=== PATIENT | female | born 1980 | race Caucasian/White ===

== ENCOUNTER 2018-09-02 10:00 | Emergency (ER) | payer MEDICAID ==
[~2018-09-02] VITALS: Ht 175.3 cm; Wt 122.5 kg
[2018-09-02 10:11] VITALS: BP 144/99
[2018-09-02] MEDS ORDERED: Dexamethasone 4mg/ml vial IM ONE (10:15)
[2018-09-02] MEDS ORDERED: IBUPROFEN600 MG ORAL (10:16)
[2018-09-02] MEDS ORDERED: AMOXICILLIN500 MG ORAL (10:16)
[2018-09-02 10:31] VITALS: BP 144/99
--- NOTE | 2018-09-02 12:23 | Emergency Room Report ---
History of Present Illness General Chief Complaint: Sore Throat Source: Patient Present Illness HPI 38-year-old female presents ED complaining of sore throat 2 days. Also complaining of earache. Denies cough. Pain is dull, 9 out of 10, nonradiating. Notes difficulty swallowing. Afebrile in triage. Denies sick contacts or recent travel. No other aggravating relieving factors. Denies any other associated symptoms Allergies: Coded Allergies: No Known Allergies (Unverified , 09/02/18) Patient History Past Medical History: none Past Surgical History: none Pertinent Family History: none Social History: Denies: smoking, alcohol use, drug use Last Menstrual Period: 08/01/18 Now: No Immunizations: UTD Reviewed Nursing Documentation: PMH: Agreed; PSxH: Agreed Nursing Documentation-PMH Past Medical History: No History, Except For Hx Hypertension: No - migraine Review of Systems All Other Systems: negative except mentioned in HPI Physical Exam Vital Signs Date Time Temp Pulse Resp B/P (MAP) Pulse Ox O2 Delivery O2 Flow Rate FiO2 09/02/18 10:03 98.4 102 18 144/99 97 Room Air 98.4 Sp02 EP Interpretation: reviewed, normal General Appearance: no apparent distress, alert, GCS 15, non-toxic Head: normocephalic, atraumatic Eyes: bilateral eye normal inspection, bilateral eye PERRL ENT: hearing grossly normal, no angioedema, normal voice, pharyngeal erythema Neck: full range of motion, supple/symm/no masses Respiratory: chest non-tender, lungs clear, normal breath sounds, speaking full sentences Cardiovascular #1: regular rate, rhythm, no edema Cardiovascular #2: 2+ carotid (R), 2+ carotid (L), 2+ radial (R), 2+ radial (L) , 2+ dorsalis pedis (R), 2+ dorsalis pedis (L) Gastrointestinal: normal bowel sounds, non tender, soft, non-distended, no guarding, no rebound Rectal: deferred Genitourinary: normal inspection, no CVA tenderness Musculoskeletal: back normal, gait/station normal, normal range of motion, non- tender Neurologic: alert, oriented x3, responsive, motor strength/tone normal, sensory intact, speech normal Psychiatric: judgement/insight normal, memory normal, mood/affect normal, no suicidal/homicidal ideation Reflexes: 3+ bicep (R), 3+ bicep (L), 3+ tricep (R), 3+ tricep (L), 3+ knee (R) , 3+ knee (L) Skin: normal color, no rash, warm/dry, well hydrated Lymphatic: adenopathy Medical Decision Making Diagnostic Impression: Primary Impression: Pharyngitis Qualified Codes: J02.9 - Acute pharyngitis, unspecified ER Course Hospital Course 38year-old female presents to ED complaining of sore throat Differential diagnoses include: URI, pharyngitis, otitis media Clinical course Patient placed on stretcher. After initial history, physical exam reveals a female in no acute distress. Bilateral TM unremarkable. There is pharyngeal erythema w/o tonsillar exudates. Noted lymphadenopathy. Clinical findings consistent with pharyngitis. Discussed findings with patient. We'll discharge with antibiotics, ibuprofen. Given Decadron shot here. Safe for discharge or close outpatient follow-up Diagnosis - pharyngitis Stable and discharged home with prescriptions for Motrin, amoxicillin. Instructed to followup with PMD. return to ED if symptoms recur or worsen Last Vital Signs Date Time Temp Pulse Resp B/P (MAP) Pulse Ox O2 Delivery O2 Flow Rate FiO2 09/02/18 10:31 98.4 102 18 144/99 97 Room Air 98.4 Status: improved Disposition: HOME, SELF-CARE Condition: Stable Scripts Amoxicillin* (AMOXIL*) 500 Mg Capsule 500 MG ORAL THREE TIMES A DAY, #21 CAP Prov: Marcos Sherman MD 09/02/18 Ibuprofen* (MOTRIN*) 600 Mg Tablet 600 MG ORAL Q8H PRN for For Pain, #30 TAB 0 Refills Prov: Marcos Sherman MD 09/02/18 Referrals: [facility],REFERR[facility] (PCP) Patient Instructions: Pharyngitis, [id number] Marcos Sherman MD Sep 02, 2018 12:23
== END 2018-09-02 10:32 | disposition home or self-care (01) ==
LOC: EMR 10:25
DX: J02.9 Acute pharyngitis, unspecified (principal)
CPT/HCPCS: 96372; 99283; J1100

== ENCOUNTER 2018-12-03 16:15 | Emergency (ER) | payer MEDICAID ==
[~2018-12-03] VITALS: Ht 175.3 cm; Wt 113.4 kg
[~2018-12-03 16:15] MED LIST: AMOXICILLIN500 MG ORAL; IBUPROFEN600 MG ORAL
--- NOTE | 2018-12-03 16:40 | NUR ---
ED Nurse Note: patient came into ED ambulatory steady gait, a/ox 4, with her two children, pt states started having dizziness and migraine last night got worse.
[2018-12-03] MEDS ORDERED: SUMAtriptan 100mg tab ORAL ONE (17:00)
--- NOTE | 2018-12-03 17:04 | Emergency Room Report ---
History of Present Illness General Chief Complaint: Headache Present Illness HPI 38-year-old female patient presents the ER complaining of migraine headache for the past 15 hours. Patient reports that headache began around 3 AM this morning. Reports history of migraines in the past, states that this feels similar, denies worse headache of life. Reports headache is right-sided. Denies vomiting or vision changes. Denies neck stiffness. Denies fever. Denies acute injury or trauma. Reports previously taken Imitrex, states ran out of the medication. Denies other acute aggravating or relieving factors. Reports nausea, denies vomiting. Reports light sensitivity. Allergies: Coded Allergies: DIPHENHYDRAMINE (Verified Allergy, Severe, Rash, 12/03/18) Patient History Past Medical History: see triage record Last Menstrual Period: >1 month Now: No Reviewed Nursing Documentation: PMH: Agreed; PSxH: Agreed Nursing Documentation-PMH Hx Hypertension: No - migraine Review of Systems All Other Systems: negative except mentioned in HPI Physical Exam Vital Signs Date Time Temp Pulse Resp B/P (MAP) Pulse Ox O2 Delivery O2 Flow Rate FiO2 12/03/18 16:33 97.7 99 18 160/93 98 Room Air Sp02 EP Interpretation: reviewed, normal General Appearance: well appearing, no apparent distress, alert, GCS 15, non- toxic Head: normocephalic, atraumatic Eyes: bilateral eye normal inspection, bilateral eye PERRL, bilateral eye EOMI ENT: hearing grossly normal, normal pharynx, no angioedema, normal voice, TMs + canals normal, uvula midline, moist mucus membranes Neck: full range of motion, no meningismus, no bony tend Respiratory: lungs clear, normal breath sounds, no rhonchi, no respiratory distress, no accessory muscle use, no wheezing, speaking full sentences Cardiovascular #1: regular rate, rhythm, no edema Genitourinary: no CVA tenderness Musculoskeletal: back normal, digits/nails normal, gait/station normal, normal range of motion, non-tender Neurologic: alert, oriented x3, responsive, insole reinforcer III-XII nml as tested, motor strength/tone normal, sensory intact, cerebellar normal, normal gait, speech normal, other - negative Kernig, negative Brudzinski Skin: no rash Lymphatic: no adenopathy Medical Decision Making PA Attestation Dr. Newman is my supervising Physician whom patient management has been discussed with. Diagnostic Impression: Primary Impression: Headache ER Course Pt presents to ED c/o headache. DDX considered but are not limited to migraine, cluster RODRIGUES, tension RODRIGUES, meningitis, ICH, meningitis, HTN, influenza, UTI, SAH. Cranial nerves intact, no focal neuro deficits, hx of migraine, current RODRIGUES similar in intensity, denies worse RODRIGUES of life, does not require CT Head at this time. No meningeal signs, no fever, low suspicion for meningitis. VITAL SIGNS are WNL, patient is afebrile ER COURSE Provided patient with Imitrex and Zofran while in the ER. States normally takes imitrex for migraines, states "ran out of medication". UA unremarkable, no signs of infection, urine negative. Discussed results with patient. Patient reports pain improved. Patient is AOx3, neurologically intact, nontoxic appearing, and ambulatory. ER precautions given. followup with neuro DISCHARGE: -Rx provided Sumatriptan At this time pt is stable for d/c to home. Patient is resting comfortably, in no acute distress, nontoxic appearing, talking and smiling. Will provide with patient care instructions and any necessary prescriptions. Patient to take medication as instructed. Care plan and follow-up instructions provided. Patient questions asked and answered. Patient instructed to follow-up with primary care provider in the next 3 days and discuss further referral with PCP to neurologist. ER precautions given. Patient instructed to return to ER immediately for any new or worsening of symptoms including but not limited to fever, neck stiffness , vision changes, and neurological symptoms. - Please note that this Emergency Department Report was dictated using viaForensicsfur mixer operator technology software, occasionally this can lead to erroneous entry secondary to interpretation by the dictation equipment. Labs Test 12/03/18 17:10 Urine Color Pale yellow Urine Appearance Clear Urine pH 6 (4.5-8.0) Urine Specific [place] 1.020 (1.005-1.035) Urine Protein 1+ (NEGATIVE) Urine Glucose (UA) Negative (NEGATIVE) Urine Ketones Negative (NEGATIVE) Urine Blood 2+ (NEGATIVE) Urine Nitrite Negative (NEGATIVE) Urine Bilirubin Negative (NEGATIVE) Urine Urobilinogen Normal MG/DL (0.0-1.0) Urine Leukocyte Esterase 1+ (NEGATIVE) Urine RBC 2-4 /HPF (0 - 2) Urine WBC 0-2 /HPF (0 - 2) Urine Squamous Epithelial Cells Moderate /LPF (NONE/OCC) Urine Bacteria Few /HPF (NONE) Urine HCG, Qualitative Negative (NEGATIVE) Last Vital Signs Date Time Temp Pulse Resp B/P (MAP) Pulse Ox O2 Delivery O2 Flow Rate FiO2 12/03/18 16:33 97.7 99 18 160/93 98 Room Air Status: improved Disposition: HOME, SELF-CARE Condition: Stable Scripts Sumatriptan Succinate* (IMITREX*) 50 Mg Tablet 50 MG ORAL DAILY PRN MIGRAINE, #20 TAB Prov: Da Alvarenga 12/03/18 Patient Instructions: Migraine Headache Additional Instructions: Followup with primary care provider in 3 -5 days. Follow-up with neurologist. Take medications as directed. Patient questions asked and answered. ER precautions given, patient instructed to return to ER immediately for any new or worsening of symptoms. aD Alvarenga Dec 03, 2018 17:04
[2018-12-03 17:24] LABS: APPEARANCE,URINE CLEAR; BILIRUBIN, URINE NEGATIVE (NEGATIVE); COLOR,URINE PALE YELLOW; GLUCOSE, URINE (UA) NEGATIVE (NEGATIVE); KETONES,URINE NEGATIVE (NEGATIVE); LEUKOCYTE ESTERASE ,URINE 1+ (NEGATIVE); NITRITE,URINE NEGATIVE (NEGATIVE); PH,URINE 6 (4.5-8.0); PROTEIN,URINE 1+ (NEGATIVE); UROBILINOGEN,URINE NORMAL MG/DL (0.0-1.0)
[2018-12-03] MEDS ORDERED: IMITREX50 MG ORAL (18:16)
[2018-12-03 18:24] VITALS: BP 160/93
[2018-12-03 19:32] VITALS: BP 160/93
--- NOTE | 2018-12-03 19:40 | NUR ---
ED Nurse Note: Patient is being discharged, cleared by HANSEL Lynn . Discharge instructions/paper/prescription given, explained, patient verbalized understanding, received signature on the paper. ID band removed. Patient ambulated out of ED with steady gait with all belongings and her two daughters, patient stated that she has a safe place to go to, offered correction/resources, patient refused to take. patient stated that she has someone coming for her. patient was provided with sandwich/juice.
== END 2018-12-03 19:03 | disposition home or self-care (01) ==
LOC: EMR 17:34
DX: R51 Headache (principal)
CPT/HCPCS: 81003; 81025; 99283

== ENCOUNTER 2019-02-22 15:55 | Emergency (ER) | payer SELFPAY ==
[~2019-02-22] VITALS: Ht 175.3 cm; Wt 122.5 kg
[~2019-02-22 15:55] MED LIST changes: +IMITREX50 MG ORAL
[2019-02-22] MEDS ORDERED: NKM (16:04)
[2019-02-22] MEDS ORDERED: HYDROcodone/Acetamin 5/325 tab ORAL ONE (17:00)
--- NOTE | 2019-02-22 17:39 | Emergency Room Report ---
History of Present Illness General Chief Complaint: Lower Extremity Injury Source: Medical Record Present Illness HPI 38-year-old female presents to the emergency department complaining of 10 out of 10 in severity localized left ankle and foot pain, swelling and tenderness 2 days. Patient status post mechanical twisting of her ankle she reports she heard and felt a pop and is unable to completely bear weight. Patient states that she has taken Tylenol with no relief. Patient denies obvious deformities, paresthesias, bruises or open wounds. Denies numbness tingling or loss of sensation or gross motor movements of the extremities, incontinence of bowel or bladder. Denies CP, Palpitations, LOC, AMS, dizziness, Changes in Vision, weakness or a sudden severe headache. Allergies: Coded Allergies: DIPHENHYDRAMINE (Verified Allergy, Severe, Rash, 12/03/18) Patient History Past Medical History: see triage record Past Surgical History: none Pertinent Family History: none Last Menstrual Period: 01/29/19 Reviewed Nursing Documentation: PMH: Agreed; PSxH: Agreed Nursing Documentation-PMH Past Medical History: No History, Except For Hx Hypertension: No - migraine Review of Systems All Other Systems: negative except mentioned in HPI Physical Exam Vital Signs Date Time Temp Pulse Resp B/P (MAP) Pulse Ox O2 Delivery O2 Flow Rate FiO2 02/22/19 16:02 97.9 105 18 147/97 97 Room Air Sp02 EP Interpretation: reviewed, normal General Appearance: alert, GCS 15, non-toxic, mild distress Head: normocephalic, atraumatic Eyes: bilateral eye normal inspection, bilateral eye PERRL ENT: hearing grossly normal, normal voice Neck: full range of motion Respiratory: lungs clear, normal breath sounds, speaking full sentences Cardiovascular #1: regular rate, rhythm, normal capillary refill Cardiovascular #2: 2+ dorsalis pedis (L) Musculoskeletal: back normal, gait/station normal, normal range of motion, swelling - lateral left ankle, tender - lateral aspect of the left foot and ankle, swelling noted, no increased laxity, no obvious deformity, NVI Neurologic: alert, oriented x3, responsive, motor strength/tone normal, sensory intact, speech normal, grossly normal Psychiatric: judgement/insight normal Skin: normal color, no rash, warm/dry, well hydrated Lymphatic: no adenopathy Medical Decision Making PA Attestation Dr. Vargas is my supervising Physician whom patient management has been discussed with. Diagnostic Impression: Primary Impression: Left ankle sprain Qualified Codes: S93.402A - Sprain of unspecified ligament of left ankle, initial encounter Additional Impression: Sprain of foot, left Qualified Codes: S93.602A - Unspecified sprain of left foot, initial encounter ER Course 38-year-old female presents to the emergency department complaining of 10 out of 10 in severity localized left ankle and foot pain, swelling and tenderness 2 days. Patient status post mechanical twisting of her ankle she reports she heard and felt a pop and is unable to completely bear weight. Patient states that she has taken Tylenol with no relief. Patient denies obvious deformities, paresthesias, bruises or open wounds. Denies numbness tingling or loss of sensation or gross motor movements of the extremities, incontinence of bowel or bladder. Denies CP, Palpitations, LOC, AMS, dizziness, Changes in Vision, weakness or a sudden severe headache. Ddx considered but are not limited to Fracture, dislocation, contusion, Sprain/ Strain/Spasm just to name a few. Vital signs: are WNL, pt. is afebrile H&PE are most consistent with musculoskeletal injury will perform imaging to r/ o fractures/dislocations. ORDERS: - X-ray Left Foot and Ankle 3 views each - negative for fx, Dislocation, or significant soft tissue injury, per preliminary read in ED, and signed by HANSEL Valerio, my supervising physician has reviewed, and agrees with my interpretation. ED INTERVENTIONS: -Left Ankle Splint applied by dialysis patient care technician. Pt. remains neurovascularly intact. -Patient is provided with crutches and instructed on their use DISCHARGE: At this time pt. is stable for d/c to home. Will provide printed patient care instructions, and any necessary prescriptions. Care plan and follow up instructions have been discussed with the patient prior to discharge. Other X-Ray Diagnostic Results Other X-Ray Diagnostic Results #1: X-Ray ordered: Left ankle # of Views/Limited Vs Complete: 3 View Indication: Pain EP Interpretation: Yes HANSEL Xray: Interpretation reviewed, by supervising MD, and agrees with findings. Interpretation: no dislocation, no soft tissue swelling, no fractures Impression: No acute disease Electronically Signed by: Estefania Valerio PA-C Other X-Ray Diagnostic Results #2: X-Ray ordered: Left Foot # of Views/Limited Vs Complete: 3 View Indication: Pain EP Interpretation: Yes PA Xray: Interpretation reviewed, by supervising MD, and agrees with findings. Interpretation: no dislocation, no soft tissue swelling, no fractures Impression: No acute disease Electronically Signed by: Estefania Valerio PA-C Last Vital Signs Date Time Temp Pulse Resp B/P (MAP) Pulse Ox O2 Delivery O2 Flow Rate FiO2 02/22/19 16:02 97.9 105 18 147/97 97 Room Air Disposition: HOME, SELF-CARE Condition: Stable Scripts Ibuprofen* (MOTRIN*) 800 Mg Tablet 800 MG ORAL THREE TIMES A DAY, #30 TAB 0 Refills Prov: Estefania Valerio 02/22/19 Referrals: NOT CHOSEN [facility],REFERRING (PCP) Departure Forms: Return to Work Return to Work Date: Feb 25, 2019 Work Restrictions: No Heavy Lifting, No Prolonged Standing Other Restrictions: May return Sooner if Symptoms have resolved. Return to Full Activity: Mar 04, 2019 Patient Instructions: Ankle Sprain, Foot Sprain Additional Instructions: Take medications as directed. Follow up with a Primary Care Provider in 3-5 days, even if your symptoms have resolved. --Please review list of primary care clinics, if you do not already have a primary care provider Return sooner to ED if new symptoms occur, or current symptoms become worse. - Please note that this Emergency Department Report was dictated using Deluuxphysician non invasive cardiologist technology software, occasionally this can lead to erroneous entry secondary to interpretation by the dictation equipment. Estefania Valerio Feb 22, 2019 17:39
[2019-02-22] MEDS ORDERED: IBUPROFEN800 MG ORAL (17:45)
[2019-02-22 17:48] VITALS: BP 142/94
--- NOTE | 2019-02-22 18:55 | Diagnostic Imaging Report ---
Indication: Left foot pain Technique: 3 views left foot Comparison: none Findings: There are small calcaneal and plantar spurs. No acute fractures. No dislocations. The joint spaces are preserved. Impression: No acute process
--- NOTE | 2019-02-22 18:56 | Diagnostic Imaging Report ---
Indication: Left ankle pain Technique: 3 views of the left ankle Comparison: none Findings: There are small calcaneal and plantar spur is noted. No acute fractures. No dislocations. The joint spaces are preserved Impression: Negative
== END 2019-02-22 17:49 | disposition home or self-care (01) ==
LOC: EMR 17:17
DX: S93.402A Sprain of unspecified ligament of left ankle, initial encounter (principal); S93.602A Unspecified sprain of left foot, initial encounter; X50.1XXA Overexertion from prolonged static or awkward postures, initial encounter; Y92.9 Unspecified place or not applicable; Z88.8 Allergy status to other drugs, medicaments and biological substances
CPT/HCPCS: 29515; 99283

== ENCOUNTER 2019-04-02 14:44 | Emergency (ER) | payer MEDICAID ==
[~2019-04-02] VITALS: Ht 175.3 cm; Wt 99.3 kg
[~2019-04-02 14:44] MED LIST changes: +IBUPROFEN800 MG ORAL; +NKM
--- NOTE | 2019-04-02 15:10 | Emergency Room Report ---
History of Present Illness General Chief Complaint: Pain Source: Patient Present Illness HPI Patient is a 30-year-old female presented after persistent left ankle pain. Patient had a recent visit for left ankle pain. She reports having continued left ankle pain and swelling. She stated initially that she had inverted her ankle and had a pop. Patient had continued to have pain to the area. She states is using an Juan [place] wrap.Patient reports having pain to both malleolus she denies any fever or numbness. Allergies: Coded Allergies: DIPHENHYDRAMINE (Verified Allergy, Severe, Rash, 12/03/18) Patient History Past Medical History: see triage record Last Menstrual Period: 03/01/19 Now: No Reviewed Nursing Documentation: PMH: Agreed; PSxH: Agreed Nursing Documentation-PMH Past Medical History: No History, Except For Hx Hypertension: No - migraine Review of Systems Genitourinary: Reports: other - wants sti check Physical Exam Vital Signs Date Time Temp Pulse Resp B/P (MAP) Pulse Ox O2 Delivery O2 Flow Rate FiO2 04/02/19 14:49 98.1 100 20 96 Room Air General Appearance: well appearing, no apparent distress, alert, GCS 15, obese Head: normocephalic, atraumatic ENT: hearing grossly normal, normal voice Neck: full range of motion, supple Respiratory: lungs clear, no respiratory distress, speaking full sentences Cardiovascular #1: regular rate, rhythm, edema - trace Gastrointestinal: normal inspection, normal bowel sounds Musculoskeletal: normal inspection, back normal Neurologic: alert, oriented x3, responsive, normal gait Psychiatric: mood/affect normal Skin: no rash Medical Decision Making Diagnostic Impression: Primary Impression: Left ankle sprain ER Course Patient presented for ankle pain. Differential diagnosis include was not limited to fracture, contusion, sprain among others. Patient has a benign exam and does not appear to require any further imaging or laboratory testing at this time. Patient was noted to have previous x-ray imaging at the time of injury which showed no evidence of acute fracture or malalignment. Prior X-rays were reviewed by me and showed no acute abnormalities. Patient was placed in a Aircast. Patient was advised to follow-up with orthopedics for reevaluation. She was given prescription for ibuprofen. Patient stated that she needed a refill of her medications for headache and was given a refill. She does not appear to have any evidence of acute need for this medication at this time and stated that she had a prior tubal ligation. Last Vital Signs Date Time Temp Pulse Resp B/P (MAP) Pulse Ox O2 Delivery O2 Flow Rate FiO2 04/02/19 14:49 98.1 100 20 96 Room Air Status: improved Disposition: HOME, SELF-CARE Condition: Stable Scripts Sumatriptan Succinate* (IMITREX*) 50 Mg Tablet 50 MG ORAL DAILY PRN MIGRAINE, #20 TAB Prov: Nish Vargas MD 04/02/19 Ibuprofen* (MOTRIN*) 600 Mg Tablet 600 MG ORAL THREE TIMES A DAY, #30 TAB 0 Refills Prov: Nish Vargas MD 04/02/19 Nish Vargas MD April 02, 2019 15:10
[2019-04-02] MEDS ORDERED: IBUPROFEN600 MG ORAL (15:11)
--- NOTE | 2019-04-02 15:20 | NUR ---
ER DISCHARGE NOTE: Patient is cleared to be discharged per ERMD, pt is aox4, on room air, with stable vital signs. pt was given dc and prescription instructions, pt was able to verbalize understanding, pt is able to ambulate with steady gait. pt took all belongings.
[2019-04-02] MEDS ORDERED: IMITREX50 MG ORAL (15:21)
[2019-04-02 16:13] VITALS: BP 141/91
[2019-04-02 16:19] VITALS: BP 141/91
== END 2019-04-02 15:20 | disposition home or self-care (01) ==
LOC: EMR 15:15
DX: S93.402A Sprain of unspecified ligament of left ankle, initial encounter (principal); X58.XXXA Exposure to other specified factors, initial encounter; Y92.9 Unspecified place or not applicable; Z88.8 Allergy status to other drugs, medicaments and biological substances
CPT/HCPCS: 99282